=== PATIENT | female | born 1935 | race Caucasian/White ===

== ENCOUNTER → 2017-01-13 | Outpatient (CLI) | payer MEDICARE, OTHER ==
[~2017-01-13] MED LIST: AMARYL2 MG PO; ASPIR 8181 M1 PO; FENOFIBRATE160 M1 PO; LOSARTAN-HCTZ1 EAC2 PO; NORVASC5 MG PO; SIMVASTATIN40 MG PO; TOPROL XL6.25 MG PO; [UNRECOGNIZED DRUG - OTHER] PO
== END | disposition home or self-care (01) ==
LOC: CDC 11:54
DX: I49.9 Cardiac arrhythmia, unspecified (principal); R94.31 Abnormal electrocardiogram [ECG] [EKG]
CPT/HCPCS: 93000